=== PATIENT | female | born 1965 | race Caucasian/White ===

== ENCOUNTER 2022-03-08 15:29 | Emergency (ER) | payer OTHER, SELFPAY ==
--- NOTE | 2022-03-08 15:39 | ED.URI ---
HPI - URI/Sore Throat General Chief Complaint: Upper Respiratory Infection Stated Complaint: Congestion Time Seen by Provider: 03/08/22 15:39 Source: patient, family, RN notes reviewed and old records reviewed Mode of arrival: ambulatory Limitations: no limitations History of Present Illness HPI Narrative: 57-year-old female presents to the [facility] with upper respiratory congestion and cough for approximately 10 days. Patient is a smoker. Has taken 2 home COVID test that were both negative. Has no concerns for flu or COVID at this time, declined testing Patient is a smoker, states she has a history of bronchitis Related Data Allergies Allergy/AdvReac Type Severity Reaction Status Date / Time No Known Allergies Allergy Mild Verified 09/17/09 10:34 Review of Systems Review of Systems: All systems reviewed & are unremarkable except as noted in HPI and below Constitutional: Constitutional: Reports no additional constitutional complaints, Denies chills, Denies fever(s) and Denies headache(s) Eyes: Eyes: Reports no additional eye complaints ENT: Reports as per HPI, Denies vertigo, Denies dizziness, Denies headache(s), Denies nasal congestion and Denies sore throat Cardiovascular: Cardiovascular: Reports no additional cardiovascular complaints, Denies chest pain, Denies syncope, Denies rapid heart rate and Denies dyspnea Respiratory: Respiratory: Reports as per HPI, Reports chest congestion, Reports cough, Denies dyspnea and Denies wheezing Gastrointestinal: Gastrointestinal: Reports no additional gastrointestinal complaints, Denies abdominal pain, Denies diarrhea, Denies nausea and Denies vomiting Musculoskeletal: Musculoskeletal: Reports no additional musculoskeletal complaints and Denies numbness Integumentary/Breasts: Skin/Breast: Reports system reviewed and no additional complaints, except as docu Neurologic: Reports system reviewed and no additional complaints, except as documented, Denies vertigo, Denies dizziness, Denies syncope, Denies headache(s), Denies focal weakness and Denies numbness Psychiatric: Psychiatric: Reports no additional psychiatric complaints Allergic/Immunologic: Allergic/Immunologic: Reports no additional allergic/immunologic complaints and Denies wheezing PMFSH Social History Social History (Updated 03/09/22 @ 07:59 by Anai Hui APRN) Smoking status: Current every day smoker Living arrangements: with family Gender identity (if verbalized by the patient): Female Comments At the time of my signature, I reviewed and agree with the nursing past medical, surgical, social, and family history. There is no relevant family history pertinent to the patient complaint. Exam Const: General: cooperative, healthy appearing, no acute distress, well developed and alert Nutritional Appearance: well nourished Orientation/consciousness: patient oriented x3 Limitations: no limitations HENMT: Head: normal to inspection Ears: external ears normal, TM's normal bilaterally and EAC's normal Throat: posterior oropharynx normal and uvula midline Eyes: Conjunctivae: conjunctivae normal Pupils: Equal, round and reactive pupils present Neck: Neck: normal visual inspection, no lymphadenopathy and no meningeal signs Chest: Chest palpation & inspection: normal inspection of the chest Resp: Effort & Inspection: normal respiratory effort and no use of accessory muscles Auscultation: no crackles, no rales, no rhonchi and wheezes Cardio: Rate: regular rate Rhythm: regular rhythm Skin: General skin exam: normal color Rashes: no rashes Wounds: no wounds Neuro: General: patient oriented x3, moves all extremities, no meningeal signs and no focal motor deficits Cranial nerves: Yes Equal, round and reactive pupils present Speech: normal speech Gait exam (Neuro): Normal gait present Extrem: General: normal to inspection, full ROM and capillary refill normal Psych: Appearance: grossly normal and well borja
[2022-03-08 15:40] VITALS: BP 119/81; PULSE 86; RESP 20; TEMP 36.6; O2SAT 100
== END 2022-03-08 15:57 | disposition home or self-care (01) ==
PROVIDERS: Emergency Provider Nurse Practitioner; PCP Internal Medicine
DX: J40 Bronchitis, not specified as acute or chronic (principal); F17.200 Nicotine dependence, unspecified, uncomplicated
CPT/HCPCS: 99213; G0463

== ENCOUNTER → 2022-08-29 08:39 | Outpatient (CLI) | payer OTHER, SELFPAY ==
--- NOTE | ~2022-08-29 | MMUS_ITS ---
EXAMINATION: MM diagnostic ted BI w [facility], US breast BI complete HISTORY: Bilateral breast pain and/or burning TECHNIQUE: Full field and spot compression ML, MLO and CC 3-D tomosynthesis images of both breasts we re performed and synthetic 2-D images were generated. CAD analysis was submitted and interpreted. Hig h resolution complete bilateral breast ultrasound examination including all 4 quadrants and subareola r areas was performed. COMPARISON: 01/09/2011 bilateral mammogram BREAST PARENCHYMAL COMPOSITION: There are scattered areas of fibroglandular density. FINDINGS: MAMMOGRAPHIC FINDINGS: There is bilateral mammographic asymmetry, with suggestion of possible bilateral breast masses. These includes an approximately 3.4 x 4 mm circumscribed opacity in the upper mid anterior left breast, ap proximately 3.7 x 4.8 mm circumscribed opacity in the inner mid left breast and probable circumscribe d axillary tail lymph nodes on the right. No malignant calcification, skin thickening or retraction is detected. ULTRASOUND: Right breast: 10:00 4 cm from nipple: 1.6 x 2.2 mm parallel circumscribed sonolucency 12:00 subareolar area: 2.4 x 2.7 mm sonolucent lesion without shadowing 3:00 subareolar area: 1.4 x 1.8 mm sonolucent lesion without posterior shadowing Left breast: No suspicious mass or shadowing is detected. IMPRESSION: 1. Probable benign findings 2. Bilateral diagnostic mammogram and breast ultrasound follow-up is recommended in 6 months BI-RADS category 3, probably benign findings. Reviewed, dictated and finalized at location [facility] [employer] IMPRESSION: 1. Probable benign findings 2. Bilateral diagnostic mammogram and breast ultrasound follow-up is recommende d in 6 months BI-RADS category 3, probably benign findings.
== END ==
PROVIDERS: PCP Internal Medicine; Visit Provider Obstetrics & Gynecology
DX: N63.0 Unspecified lump in unspecified breast (principal)
CPT/HCPCS: 76641; 77062; 77066; G0279